=== PATIENT | female | born 1975 | race Caucasian/White ===

== ENCOUNTER 2017-08-28 15:53 | Emergency (ER) | payer MEDICAID ==
[~2017-08-28] VITALS: Ht 162.6 cm; Wt 102.0 kg
[~2017-08-28 15:53] MED LIST: MACR100C PO
[2017-08-28 15:54] VITALS: BP 126/79; PULSE 79; RESP 18; TEMP 99.1; O2SAT 99
--- NOTE | 2017-08-28 20:09 | PD ---
HPI Chief Complaint: Abdominal Pain Time Seen by Provider: 16:42 Travel History International Travel<30 days: No Contact w/Intl Traveler<30days: No Traveled to known affect area: No History of Present Illness HPI Pt is a 42-year-old female presenting to the emergency department for evaluation of a hernia. Patient states it is localized to her umbilicus. She states this started one week ago. Patient reports it is painful to touch, causing her to feel nauseated and has been vomiting. She denies any change in her bowel habits. She denies any chest pain, shortness breath, fever, chills. Onset was sudden, there are no alleviating or exacerbating factors. PFSH Past Medical History Cancer: No Cardiovascular Problems: No Diminished Hearing: No Endocrine: No Gastrointestinal Disorders: Yes (Vomiting and Nausea) Genitourinary: No Immune Disorder: No Implanted Vascular Access Dvce: No Musculoskeletal: No Neurologic: No Psychiatric: No Reproductive: No Respiratory: No ?: Not LMP: 08/23/17 : 2 Para: 1 Past Surgical History Abdominal Surgery: Yes (GB stones removed) Pacemaker: No Other Surgery: No Social History Alcohol Use: No Tobacco Use: No Substance Use: No Allergies-Medications (Allergen,Severity, Reaction): Coded Allergies: egg (Unverified Allergy, Severe, 04/02/17) Reported Meds & Prescriptions Reported Meds & Active Scripts Active Macrobid (Nitrofurantoin Macrocrystals) 100 Mg Cap 100 Mg PO BID Review of Systems Except as stated in HPI: all other systems reviewed are Neg Gastrointestinal: Positive: Nausea, Vomiting, Abdominal Pain Physical Exam Narrative GENERAL: Overweight, well-developed, alert female. Presenting in no acute distress SKIN: Warm and dry. HEAD: Normocephalic. EYES: No scleral icterus. No injection or drainage. NECK: Supple, trachea midline. No JVD or lymphadenopathy. RESPIRATORY: No accessory muscle use. CARDIOVASCULAR: Regular rate Data Data Last Documented VS Vital Signs Date Time Temp Pulse Resp B/P (MAP) Pulse Ox O2 Delivery O2 Flow Rate FiO2 08/28/17 18:41 08/28/17 15:54 99.1 79 18 99 Room Air MDM Medical Decision Making Medical Screen Exam Complete: Yes Emergency Medical Condition: Yes Interpretation(s) Vital Signs Date Time Temp Pulse Resp B/P (MAP) Pulse Ox O2 Delivery O2 Flow Rate FiO2 08/28/17 18:41 08/28/17 15:54 99.1 79 18 126/79 (95) 99 Room Air Differential Diagnosis Hernia versus incarcerated bowel versus metabolic abnormality versus other Narrative Course Patient is a 42-year-old female that presented to the emergency department for evaluation of a possible umbilical hernia that suddenly protruded today. Patient's vital signs are stable, she is awaiting bed placement. She was called to be bedded, she is no longer in the emergency department. Patient left AGAINST MEDICAL ADVICE. Diagnosis Primary Impression: Left against medical advice Disposition: 07 AGAINST MEDICAL ADVICE Vika Fulton Aug 28, 2017 20:09
== END 2017-08-28 18:41 | disposition left against medical advice (07) ==
LOC: NED 15:53
DX: R10.9 Unspecified abdominal pain (principal); R11.2 Nausea with vomiting, unspecified
CPT/HCPCS: 99281

== ENCOUNTER 2017-12-27 14:47 | Emergency (ER) | payer MEDICAID ==
[~2017-12-27] VITALS: Ht 165.1 cm; Wt 100.0 kg
[2017-12-27 14:49] VITALS: BP 171/84; PULSE 74; RESP 16; TEMP 98.6; O2SAT 100
[2017-12-27 15:05] VITALS: BP 135/87; PULSE 84; RESP 18; O2SAT 99
[2017-12-27] MEDS ORDERED: SODIUM CHLORIDE 0.9% FLUSH 10 ML FLUSH IV FLUSH PRN (15:15)
[2017-12-27] MEDS ORDERED: DIATRIZOATE MEGLUM/DIATRIZOATE SOD 9 ML CUP ONE (15:28)
[2017-12-27 15:42] LABS: AUTOMATED NEUTROPHIL # 8.4 TH/MM3 (1.8-7.7); BASOPHIL # 0.3 TH/MM3 (0-0.2); BASOPHIL % 2.4 % (0.0-2.0); EOSINOPHIL # 0.4 TH/MM3 (0-0.4); EOSINOPHIL % 2.7 % (0.0-4.0); HEMATOCRIT 35.7 % (35.0-46.0); HEMOGLOBIN 11.8 GM/DL (11.6-15.3); LYMPH % 26.9 % (9.0-44.0); LYMPHOCYTE # 3.7 TH/MM3 (1.0-4.8); MEAN CELL VOLUME 78.9 FL (80.0-100.0); MEAN PLATELET VOLUME 8.3 FL (7.0-11.0); MONO % 6.8 % (0.0-8.0); MONOCYTE # 0.9 TH/MM3 (0-0.9); NEUT % 61.2 % (16.0-70.0); PLATELET COUNT 401 TH/MM3 (150-450); RED BLOOD COUNT 4.53 MIL/MM3 (4.00-5.30); RED CELL DISTRIBUTION WIDTH 15.3 % (11.6-17.2); WHITE BLOOD COUNT 13.8 TH/MM3 (4.0-11.0)
[2017-12-27 15:55] LABS: BILIRUBIN, URINE NEG (NEG); BLOOD, URINE NEG (NEG); GLUCOSE,URINE NEG (NEG); KETONE, URINE NEG (NEG); NITRITE,URINE NEG (NEG); SQUAMOUS EPITHELIAL CELL URINE 1 /hpf (0-5); URINE COLOR COLORLESS (YELLW/STRAW); URINE LEUKOCYTE ESTERASE NEG (NEG)
[2017-12-27 16:01] LABS: ALBUMIN 3.4 GM/DL (3.4-5.0); ALT (GPT) 20 U/L (10-53); AST (GOT) 14 U/L (15-37); BICARBONATE 23.8 MEQ/L (21.0-32.0); BLOOD UREA NITROGEN 7 MG/DL (7-18); CALCIUM 8.1 MG/DL (8.5-10.1); CHLORIDE 106 MEQ/L (98-107); CREATININE 0.72 MG/DL (0.50-1.00); GLOMERULAR FILTRATION RATE 89 ML/MIN (>89); GLUCOSE,RANDOM 83 MG/DL (74-106); SODIUM (NA) 140 MEQ/L (136-145)
[2017-12-27 16:04] LABS: ALKALINE PHOSPHATASE 74 U/L (45-117); TOTAL BILIRUBIN ADULT 0.3 MG/DL (0.2-1.0); TOTAL PROTEIN 7.4 GM/DL (6.4-8.2)
--- NOTE | 2017-12-27 16:23 | PD ---
HPI Chief Complaint: GI Complaint Time Seen by Provider: 14:56 Travel History International Travel<30 days: No Contact w/Intl Traveler<30days: No Traveled to known affect area: No History of Present Illness HPI This is a 42-year-old female who presents via the [facility] for evaluation for possible bowel obstruction. Patient states that she has had pain in her periumbilical area and swelling of her belly since 5:00 last night. She states that she did not sleep at all last night. She reports loose stools in addition to vomiting. She states more vomiting than loose stools. There is no urinary symptoms. There are no other complaints at time of examination. The patient has had previous abdominal surgery and had a cholecystectomy done in the past. PFSH Past Medical History Medical History: Denies Significant Hx Cancer: No Cardiovascular Problems: No Diminished Hearing: No Endocrine: No Gastrointestinal Disorders: Yes (Vomiting and Nausea) Genitourinary: No Immune Disorder: No Implanted Vascular Access Dvce: No Musculoskeletal: No Neurologic: No Psychiatric: No Reproductive: No Respiratory: No Influenza Vaccination: Yes ?: Not LMP: 12/04/17 : 2 Para: 2 Miscarriage: 0 : 0 Past Surgical History Abdominal Surgery: Yes (GALLSTONES REMOVED) Pacemaker: No Other Surgery: No Social History Alcohol Use: No Tobacco Use: No Substance Use: No Allergies-Medications (Allergen,Severity, Reaction): Coded Allergies: egg (Unverified Allergy, Severe, 12/27/17) Reported Meds & Prescriptions Reported Meds & Active Scripts Active No Active Prescriptions or Reported Medications Review of Systems Except as stated in HPI: all other systems reviewed are Neg General / Constitutional: No: Fever, Chills HENT: No: Headaches, Neck Stiffness, Neck Pain Cardiovascular: No: Chest Pain or Discomfort, Palpitations Respiratory: No: Cough, Shortness of Breath Gastrointestinal: Positive: Nausea, Vomiting, Diarrhea Genitourinary: No: Frequency, Dysuria Neurologic: No: Weakness, Dizziness, Headache Physical Exam Narrative GENERAL: Well-developed well-nourished female in no acute respiratory distress. SKIN: Focused skin assessment warm/dry. HEAD: Atraumatic. Normocephalic. EYES: No scleral icterus. No injection or drainage. ENT: No nasal bleeding or discharge. Mucous membranes pink and moist. NECK: Trachea midline. Supple. CARDIOVASCULAR: Regular rate and rhythm. No murmur appreciated. RESPIRATORY: No accessory muscle use. Clear to auscultation. Breath sounds equal bilaterally. GASTROINTESTINAL: Abdomen soft, distended. No rebound or guarding. Patient reports periumbilical pain. No hyper or hypoactive bowel sounds. MUSCULOSKELETAL: No obvious deformities. No clubbing. No cyanosis. No edema. NEUROLOGICAL: Awake and alert. No obvious cranial nerve deficits. Motor grossly within normal limits. Normal speech. Data Data Last Documented VS Vital Signs Date Time Temp Pulse Resp B/P (MAP) Pulse Ox O2 Delivery O2 Flow Rate FiO2 12/27/17 17:55 86 18 139/77 (97) 99 Room Air 12/27/17 14:49 98.6 Orders Orders Complete Blood Count With Diff (12/27/17 15:10) Comprehensive Metabolic Panel (12/27/17 15:10) Lipase (12/27/17 15:10) Urinalysis - C+S If Indicated (12/27/17 15:10) Ct Abd/Pel W Iv Contrast(Rout) (12/27/17 15:10) Iv Access Insert/Monitor (12/27/17 15:10) Ecg Monitoring (12/27/17 15:10) Oximetry (12/27/17 15:10) Sodium Chloride 0.9% Flush (Ns Flush) (12/27/17 15:15) Ed Urine Pregnancytest Poc (12/27/17 15:10) Oral Contrast - Adult (12/27/17 15:21) Diatrizoate Liq ( Gastroarabella Liq) (12/27/17 15:28) Iohexol 350 Inj (Omnipaque 350 Inj) (12/27/17 17:33) Morphine Inj (Morphine Inj) (12/27/17 17:45) Metoclopramide Inj (Reglan Inj) (12/27/17 17:45) Ed Discharge Order (12/27/17 18:51) Labs Laboratory Tests Test 12/27/17 15:23 White Blood Count 13.8 TH/MM3 Red Blood Count 4.53 MIL/MM3 Hemoglobin 11.8 GM/DL Hematocrit 35.7 % Mean Corpuscular Volume 78.9 FL Mean Corpuscular Hemoglobin 26.0 PG Mean Corpuscular Hemoglobin Concent 33.0 % Red Cell Distribution Width 15.3 % Platelet Count 401 TH/MM3 Mean Platelet Volume 8.3 FL Neutrophils (%) (Auto) 61.2 % Lymphocytes (%) (Auto) 26.9 % Monocytes (%) (Auto) 6.8 % Eosinophils (%) (Auto) 2.7 % Basophils (%) (Auto) 2.4 % Neutrophils # (Auto) 8.4 TH/MM3 Lymphocytes # (Auto) 3.7 TH/MM3 Monocytes # (Auto) 0.9 TH/MM3 Eosinophils # (Auto) 0.4 TH/MM3 Basophils # (Auto) 0.3 TH/MM3 CBC Comment DIFF FINAL Differential Comment Urine Color COLORLESS Urine Turbidity CLEAR Urine pH 7.0 Urine Specific [place] 1.002 Urine Protein NEG mg/dL Urine Glucose (UA) NEG mg/dL Urine Ketones NEG mg/dL Urine Occult Blood NEG Urine Nitrite NEG Urine Bilirubin NEG Urine Urobilinogen LESS THAN 2.0 MG/DL Urine Leukocyte Esterase NEG Urine Squamous Epithelial Cells 1 /hpf Microscopic Urinalysis Comment CULT NOT INDICATED Blood Urea Nitrogen 7 MG/DL Creatinine 0.72 MG/DL Random Glucose 83 MG/DL Total Protein 7.4 GM/DL Albumin 3.4 GM/DL Calcium Level 8.1 MG/DL Alkaline Phosphatase 74 U/L Aspartate Amino Transf (AST/SGOT) 14 U/L Alanine Aminotransferase (ALT/SGPT) 20 U/L Total Bilirubin 0.3 MG/DL Sodium Level 140 MEQ/L Potassium Level 3.9 MEQ/L Chloride Level 106 MEQ/L Carbon Dioxide Level 23.8 MEQ/L Anion Gap 10 MEQ/L Estimat Glomerular Filtration Rate 89 ML/MIN Lipase 109 U/L MDM Medical Decision Making Medical Screen Exam Complete: Yes Emergency Medical Condition: Yes Differential Diagnosis Partial bowel obstruction versus appendicitis versus diverticulitis versus gastroenteritis Narrative Course 32-year-old female sent from the women's clinic for evaluation for possible bowel obstruction. Patient has a ventral hernia. The team of doctors at the clinic were worried about bowel incarceration. CT scan shows a fat-containing ventral wall hernia. There is no evidence of bowel obstruction. The patient is actually pain-free at reevaluation. I was in the trauma room and Parish Llamas PA-C was kind enough to discharge this patient for me. She will have an outpatient follow-up for general surgery. Diagnosis Primary Impression: Ventral hernia Additional Impression: History of nausea and vomiting Additional Instructions: Return if worse. Follow-up with outpatient surgery. Scripts No Active Prescriptions or Reported Meds Disposition: 01 DISCHARGE HOME Condition: Stable Dallas Vang MD December 27, 2017 16:23
[2017-12-27] MEDS ORDERED: IOHEXOL 350 MG/ML 10 ML VIAL (for RAD DIAG) IVCONTRAST ONE (17:33)
[2017-12-27] MEDS ORDERED: METOCLOPRAMIDE HCL 10 MG/2 ML VIAL IV PUSH ONE (17:45)
[2017-12-27] MEDS ORDERED: MORPHINE SULFATE 4 MG/ML INJ IV PUSH ONE (17:45)
--- NOTE | 2017-12-27 17:46 | RADRPT ---
EXAM DATE/TIME: 12/27/2017 17:22 [facility] COMPARISON: No previous studies available for comparison. INDICATIONS : Abdominal pain, possible obstruction, ventral hernia IV CONTRAST: 95 cc Omnipaque 350 (iohexol) IV ORAL CONTRAST: Prescribed oral contrast ingested. RADIATION DOSE: 15.94 CTDIvol (mGy) MEDICAL HISTORY : None SURGICAL HISTORY : None. ENCOUNTER: Initial ACUITY: 1 day PAIN SCALE: 6/10 LOCATION: diffuse adbomen TECHNIQUE: Volumetric scanning of the abdomen and pelvis was performed. Using automated exposure control and ad justment of the mA and/or kV according to patient size, radiation dose was kept as low as reasonably achievable to obtain optimal diagnostic quality images. DICOM format image data is available electro nically for review and comparison. FINDINGS: Minimal dependent atelectasis in the lungs. No acute findings in the liver, spleen, adrenals, kidneys or pancreas. Previous cholecystectomy. No free fluid. No bowel obstruction. No adenopathy. Probable nabothian cysts in the cervix. There is a fat containing ventral hernia measuring about 6.5 cm in transverse diameter near the umbilicus region. CONCLUSION: 1. 6.5 cm fat containing ventral hernia. No bowel incarceration or obstruction. 2. Previous cholecystectomy. Raul Quintero MD on December 27, 2017 at 17:41 Board Certified Radiologist. This report was verified electronically.
[2017-12-27 17:55] VITALS: BP 139/77; PULSE 86; RESP 18; O2SAT 99
--- NOTE | 2017-12-27 18:50 | PD ---
Data Data Last Documented VS Vital Signs Date Time Temp Pulse Resp B/P (MAP) Pulse Ox O2 Delivery O2 Flow Rate FiO2 12/27/17 17:55 86 18 139/77 (97) 99 Room Air 12/27/17 14:49 98.6 Orders Orders Complete Blood Count With Diff (12/27/17 15:10) Comprehensive Metabolic Panel (12/27/17 15:10) Lipase (12/27/17 15:10) Urinalysis - C+S If Indicated (12/27/17 15:10) Ct Abd/Pel W Iv Contrast(Rout) (12/27/17 15:10) Iv Access Insert/Monitor (12/27/17 15:10) Ecg Monitoring (12/27/17 15:10) Oximetry (12/27/17 15:10) Sodium Chloride 0.9% Flush (Ns Flush) (12/27/17 15:15) Ed Urine Pregnancytest Poc (12/27/17 15:10) Oral Contrast - Adult (12/27/17 15:21) Diatrizoate Liq ( Gastroview Liq) (12/27/17 15:28) Iohexol 350 Inj (Omnipaque 350 Inj) (12/27/17 17:33) Morphine Inj (Morphine Inj) (12/27/17 17:45) Metoclopramide Inj (Reglan Inj) (12/27/17 17:45) Labs Laboratory Tests Test 12/27/17 15:23 White Blood Count 13.8 TH/MM3 Red Blood Count 4.53 MIL/MM3 Hemoglobin 11.8 GM/DL Hematocrit 35.7 % Mean Corpuscular Volume 78.9 FL Mean Corpuscular Hemoglobin 26.0 PG Mean Corpuscular Hemoglobin Concent 33.0 % Red Cell Distribution Width 15.3 % Platelet Count 401 TH/MM3 Mean Platelet Volume 8.3 FL Neutrophils (%) (Auto) 61.2 % Lymphocytes (%) (Auto) 26.9 % Monocytes (%) (Auto) 6.8 % Eosinophils (%) (Auto) 2.7 % Basophils (%) (Auto) 2.4 % Neutrophils # (Auto) 8.4 TH/MM3 Lymphocytes # (Auto) 3.7 TH/MM3 Monocytes # (Auto) 0.9 TH/MM3 Eosinophils # (Auto) 0.4 TH/MM3 Basophils # (Auto) 0.3 TH/MM3 CBC Comment DIFF FINAL Differential Comment Urine Color COLORLESS Urine Turbidity CLEAR Urine pH 7.0 Urine Specific [place] 1.002 Urine Protein NEG mg/dL Urine Glucose (UA) NEG mg/dL Urine Ketones NEG mg/dL Urine Occult Blood NEG Urine Nitrite NEG Urine Bilirubin NEG Urine Urobilinogen LESS THAN 2.0 MG/DL Urine Leukocyte Esterase NEG Urine Squamous Epithelial Cells 1 /hpf Microscopic Urinalysis Comment CULT NOT INDICATED Blood Urea Nitrogen 7 MG/DL Creatinine 0.72 MG/DL Random Glucose 83 MG/DL Total Protein 7.4 GM/DL Albumin 3.4 GM/DL Calcium Level 8.1 MG/DL Alkaline Phosphatase 74 U/L Aspartate Amino Transf (AST/SGOT) 14 U/L Alanine Aminotransferase (ALT/SGPT) 20 U/L Total Bilirubin 0.3 MG/DL Sodium Level 140 MEQ/L Potassium Level 3.9 MEQ/L Chloride Level 106 MEQ/L Carbon Dioxide Level 23.8 MEQ/L Anion Gap 10 MEQ/L Estimat Glomerular Filtration Rate 89 ML/MIN Lipase 109 U/L [facility] Medical Record Reviewed: Yes Supervised Visit with PADDY: No Narrative Course I have been asked to follow-up with the patient CT results. CT results reveal CONCLUSION: 1. 6.5 cm fat containing ventral hernia. No bowel incarceration or obstruction. 2. Previous cholecystectomy. Upon reexamination the patient is asymptomatic. The abdomen is soft and nontender. She is stable for discharge. Diagnosis Primary Impression: Ventral hernia Referrals: Dawit Dale MD Additional Instruction: Please provide the patient a copy of her CT results upon discharge. Follow-up with a surgeon such as Dr. Dale on an as-needed basis. Return for any acutely new or worsening symptoms. Med/Other Pt SpecificInfo: No Change to Meds Scripts No Active Prescriptions or Reported Meds Disposition: 01 DISCHARGE HOME Condition: Stable Parish Llamas December 27, 2017 18:50
== END 2017-12-27 19:23 | disposition home or self-care (01) ==
LOC: NEPE 14:47
DX: K43.9 Ventral hernia without obstruction or gangrene (principal)
CPT/HCPCS: 74177; 80053; 81001; 83690; 84703; 85025; 96374; 96375; 99285; J2270; J2765; Q9963; Q9967